=== PATIENT | male | born 1975 | race Caucasian/White ===

== ENCOUNTER 2019-09-06 15:29 | Emergency (ER) | payer MEDICAID ==
[~2019-09-06] VITALS: Ht 175.3 cm; Wt 63.5 kg
[2019-09-06] MEDS ORDERED: ELVI1TAB3 PO (15:51)
--- NOTE | 2019-09-06 16:00 | NUR ---
Dr Gracia at the bedside for MSE.
[2019-09-06 16:09] LABS: BASOPHILS % (AUTO) 0.2 % (0.0-2.0); EOSINOPHILS # (AUTO) 0.1 K/uL (0.0-0.7); EOSINOPHILS % (AUTO) 1.7 % (0.0-7.0); HEMATOCRIT 42.4 % (36.7-47.1); LYMPHOCYTES # (AUTO) 1.8 K/uL (20.0-40.0); LYMPHOCYTES % (AUTO) 23.4 % (20.5-51.5); MEAN CORPUSCULAR HEMOGLOBIN 27.9 uug (23.8-33.4); MEAN CORPUSCULAR HGB CONC 33 g/dL (32.5-36.3); MEAN CORPUSCULAR VOLUME 84.9 fL (73.0-96.2); MONOCYTES # (AUTO) 0.8 K/uL (2.0-10.0); NEUTROPHILS # (AUTO) 4.9 K/uL (1.8-8.9); NEUTROPHILS % (AUTO) 63.7 % (38.5-71.5); PLATELET COUNT (AUTO) 284 K/uL (152-348); RED BLOOD CELL COUNT(AUTO) 4.99 MIL/uL (4.06-5.63); WHITE BLOOD COUNT (AUTO) 7.7 K/uL (3.6-10.2)
[2019-09-06 16:10] LABS: *BILIRUBIN,URIN NEGATIVE (NEGATIVE); *BLOOD, URINE NEGATIVE (NEGATIVE); *CLARITY,URINE CLEAR (CLEAR); *COLOR,URINE YELLOW (YELLOW); *KETONES,URINE NEGATIVE (NEGATIVE); LEUKOCYTE ESTERASE ,URINE NEGATIVE (NEGATIVE); NITRITE, URINE NEGATIVE (NEGATIVE); UGLUCOSE NEGATIVE (NEGATIVE)
--- NOTE | 2019-09-06 16:10 | NUR ---
Pt states having Suecida ideation but has no plan.
[2019-09-06 16:15] LABS: CARBON DIOXIDE 33 mmol/L (21-32); CHLORIDE 102 mmol/L (98-107); CREATININE 0.8 mg/dL (0.6-1.3); GLUCOSE 101 mg/dL (74-106); UREA NITROGEN, BLOOD 14 mg/dL (7-18)
[2019-09-06 16:20] LABS: ALANINE AMINOTRANSFERASE 17 U/L (16-63); ALKALINE PHOSPHATASE 87 U/L (50-136); ASPARTATE AMINOTRANSFERASE 13 U/L (15-37); BILIRUBIN,DIRECT 0.1 mg/dL (0.0-0.2); BILIRUBIN,TOTAL 0.3 mg/dL (0.2-1.0); TOTAL PROTEIN, SERUM 7.6 g/dL (6.4-8.2)
[2019-09-06 16:23] LABS: ACETAMINOPHEN < 2.0 ug/mL (10-30)
[2019-09-06 16:31] LABS: *AMPHETAMINE, URINE POSITIVE (NEGATIVE); *BARBITURATE, URINE NEGATIVE (NEGATIVE); *CANNABINOID, URINE NEGATIVE (NEGATIVE); *COCCAINE, URINE NEGATIVE (NEGATIVE); *OPIATE, URINE NEGATIVE (NEGATIVE); *PHENCYCLIDINE SCREEN,URINE NEGATIVE (NEGATIVE)
--- NOTE | 2019-09-06 16:36 | NUR ---
Patient is resting comfortably in bed with eyes closed, NAD noted.
[2019-09-06 16:47] LABS: ETHANOL < 3 MG/DL (0-0)
--- NOTE | 2019-09-06 16:55 | NUR ---
Pt is medically cleared by Dr Gracia for psych eval.
--- NOTE | 2019-09-06 17:00 | NUR ---
Called [facility], Julio C LEW, ETA 1 hour.
--- NOTE | 2019-09-06 17:20 | NUR ---
Dinner provided, Pt ate w/ moderate appetite.
--- NOTE | 2019-09-06 18:02 | NUR ---
Pt seen by PET, Julio C lim SHANK TURNER.
[2019-09-06] MEDS ORDERED: LORAZEPAM 0.5 MG TABLET PO ONE (18:15)
[2019-09-06] MEDS ORDERED: LORAZEPAM 1 MG TABLET ONE (18:21)
--- NOTE | 2019-09-06 18:41 | NUR ---
Patient given written and verbal discharge instructions. Patient verbalizes understanding of instructions. Patient is ambulatory with steady gait. Refuses offer of [facility] placement. Patient given list of available shelters in surrounding area.
== END 2019-09-06 18:41 | disposition home or self-care (01) ==
LOC: ER 15:29
DX: F32.9 Major depressive disorder, single episode, unspecified (principal); R45.851 Suicidal ideations; F15.10 Other stimulant abuse, uncomplicated; Z88.8 Allergy status to other drugs, medicaments and biological substances; Z79.899 Other long term (current) drug therapy; Z59.0 Homelessness
CPT/HCPCS: 36415; 80048; 80076; 80307; 81001; 85025; 93005; 99284; G0480 ×2; G0481; A4663